=== PATIENT | male | born 1960 | race Caucasian/White ===

== ENCOUNTER 2017-12-30 11:36 | Day surgery (SDC) | payer MEDICAID, SELFPAY ==
[2017-12-30 12:10] VITALS: BP 113/76; PULSE 83; RESP 16; TEMP 37.1; O2SAT 100; BMI 32.0
--- NOTE | 2017-12-30 13:30 | RAD_ITS ---
STUDY: X-RAY - LUMBAR SPINE REASON FOR EXAM: Male, 57 years old. Right L3-S1 facet joint block. TECHNIQUE: 3 cone down intraoperative view(s) of the lumbar spine were obtained. COMPARISON: None FINDINGS: Fluoroscopic imaging provided for right L3-S1 facet joint block. RAD/Lumbar Spine 2 or 3 Views IMPRESSION: Imaging provided for right L3-S1 facet joint block. Electronically Signed: Thom Espinoza MD at 14:14 EST Tel [phone], Service support ,
[2017-12-30] MEDS: Triamcinolone Acetonide 40 MG/ML Vial (13:42)
[2017-12-30] MEDS: Bupivacaine 0.25% 30 ML Vial (13:43)
--- NOTE | 2017-12-30 13:51 | PCM.DC ---
- Discharge Diagnoses Current Active Problems: Lower back pain due to lumbar facet disease You will use the following diet at home:: No restrictions Your food should be the consistency of: Regular Discharge Activity: Return to Normal Activity May shower in (days): 1 May resume sexual activity in: No Restrictions Weight Bearing Status: Weight bearing as tolerated Call your doctor if your incision/area has: Continuous Slow Oozing, Sudden Increased Bleeding, Increased Pain/ Swelling, Foul Smelling Discharge, Swelling at the incision site Call your doctor if you observe: Fever of 101 or Higher, Coldness, Increased Pain, Numbness or Tingling, Uncontrolled pain Suture Line Care: Avoid Pulling/Pushing, Avoid Pinching/Bending Cleanse incision/area with: Soap & Water Allergies/Adverse Reactions: Allergies No Known Allergies Allergy (Verified 01/25/17 15:23) Medications to take at Discharge ALPRAZolam [Xanax] 1 mg PO QHS 01/25/17 Hydrocodone Bitart/Apap 5-325 [[place] 5MG-325MG] 2 tablet PO Q6H PRN PRN 01/25/17 Lisinopril [Zestril] 10 mg PO DAILY 01/25/17 Omeprazole [Prilosec] 40 mg PO DAILY 01/25/17 Pregabalin [Lyrica] 75 mg PO TID 01/25/17 Primary Care Physician: Mulu Person MD [Primary Care Provider] - Please Follow Up With: Luz Lombardi MD
--- NOTE | 2017-12-30 13:55 | OP.PCM_ITS ---
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 Patient placed in the prone position, pressure points were padded, patient was ready from the nursing and the anesthesia team. After identification of the side and the target area for the block under guided fluoroscopy, the entry site was marked with marking pen. I used Betadine for sterilization of the skin, sterile draping were applied. Using 25-gauge needle to infiltrate the skin with local anesthesia using preservative-free lidocaine 0.5% injected 2.5 mL at each site of entry. Using oblique fluoroscopy, accessed the right medial nerve branch supplying the right lumbar facets L3-4, L4-5, L5-S1 using 22-gauge spinal needle. After confirmation of appropriate needle placement to the targeted area with AP and lateral fluoroscopy, injected 2.5 mL mixture of preservative-free Marcaine 0.5% and Kenalog 20 mg at each site. [place] was removed, pressure dressing were applied. Patient tolerated the procedure well and was taken to the recovery.
[2017-12-30 13:57] VITALS: BP 113/76; BP 117/81; PULSE 92; RESP 16; TEMP 37.1; O2SAT 100
--- NOTE | 2017-12-30 14:01 | PCM.OPRPT ---
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 Patient placed in the prone position, pressure points were padded, patient was ready from the nursing and the anesthesia team. After identification of the side and the target area for the block under guided fluoroscopy, the entry site was marked with marking pen. I used Betadine for sterilization of the skin, sterile draping were applied. Using 25-gauge needle to infiltrate the skin with local anesthesia using preservative-free lidocaine 0.5% injected 2.5 mL at each site of entry. Using oblique fluoroscopy, accessed the right medial nerve branch supplying the right lumbar facets L3-4, L4-5, L5-S1 using 22-gauge spinal needle. After confirmation of appropriate needle placement to the targeted area with AP and lateral fluoroscopy, injected 2.5 mL mixture of preservative-free Marcaine 0.5% and Kenalog right mg at each site. [place] was removed, pressure dressing were applied. Patient tolerated the procedure well and was taken to the recovery. - Complications None
[2017-12-30 14:02] VITALS: BP 113/76; BP 114/81; PULSE 81; RESP 16; O2SAT 99
[2017-12-30 14:07] VITALS: BP 113/76; BP 128/89; PULSE 80; RESP 16; O2SAT 97
[2017-12-30 14:12] VITALS: BP 113/76; BP 130/90; PULSE 79; RESP 18; TEMP 37.1; O2SAT 97
[2017-12-30 14:22] VITALS: BP 113/76
== END 2017-12-30 14:40 | disposition home or self-care (01) ==
LOC: SDC 11:37 → AC 11:49
PROVIDERS: Family Provider Family Medicine; PCP Family Medicine; Visit Provider Anesthesiology
PROC: 3E0T3BZ Introduction of Anesthetic Agent into Peripheral Nerves and Plexi, Percutaneous Approach (ICD-10-PCS; CPT 64493; principal; 2017-12-30 13:15)
DX: M47.816 Spondylosis without myelopathy or radiculopathy, lumbar region (principal); M51.36 Other intervertebral disc degeneration, lumbar region; M51.26 Other intervertebral disc displacement, lumbar region; G89.29 Other chronic pain; I10 Essential (primary) hypertension; K21.9 Gastro-esophageal reflux disease without esophagitis; B19.20 Unspecified viral hepatitis C without hepatic coma; F17.210 Nicotine dependence, cigarettes, uncomplicated; E66.9 Obesity, unspecified; Z68.32 Body mass index [BMI] 32.0-32.9, adult; Z96.89 Presence of other specified functional implants; Z79.899 Other long term (current) drug therapy
CPT/HCPCS: 01922; 64493; 64494; 64495; 64483; 72100; J7120

== ENCOUNTER 2018-02-10 11:56 | Day surgery (SDC) | payer MEDICAID, SELFPAY ==
[2018-02-10 12:17] VITALS: BP 131/81; PULSE 99; RESP 14; TEMP 36.7; O2SAT 98; BMI 32.3
--- NOTE | 2018-02-10 14:00 | RAD_ITS ---
XR Spine Lumbar 2 or 3 Views INDICATION: BLOCK, LUMBAR FACET, L3-4,4-5,5-S1,LEFT COMPARISON: None TECHNIQUE: Multiple intraoperative fluoroscopic images of the lumbar spine. 22.3 seconds of intraoperative fluoroscopy were used. 3 images are provided. FINDINGS: Fluoroscopy was used for intraoperative guidance. Injection needles are noted at multiple levels. Please see operative report. RAD/Lumbar Spine 2 or 3 Views IMPRESSION: Intraoperative fluoroscopy for treatment guidance at multiple levels. Please see operative report. at 1909 Reported and signed by: Lisa Wakefield MD Electronically Signed: Lisa Wakefield MD at 18:07 EDT Tel , Service support ,
[2018-02-10] MEDS: Triamcinolone Acetonide 40 MG/ML Vial (14:46)
[2018-02-10] MEDS: Bupivacaine 0.25% 30 ML Vial (14:47)
--- NOTE | 2018-02-10 14:53 | PCM.DC ---
- Discharge Diagnoses Current Active Problems: Lumbar facet spondylosis Lower back pain Lumbar facet hypertrophy and arthritis Reason(s) for Visit for Discharge Instructions: Left sided lumbar facet block under fluoroscopy You will use the following diet at home:: No restrictions Your food should be the consistency of: Regular Discharge Activity: Return to Normal Activity, No Restrictions, May Drive, May Shower May shower in (days): 1 May resume sexual activity in: No Restrictions Weight Bearing Status: Weight bearing as tolerated Call your doctor if your incision/area has: Increased Pain/ Swelling, Increased Redness Call your doctor if you observe: Fever of 101 or Higher, Numbness or Tingling, Calf discomfort, Uncontrolled pain Suture Line Care: Avoid Pulling/Pushing, Avoid Pinching/Bending Cleanse incision/area with: Soap & Water Allergies/Adverse Reactions: Allergies No Known Allergies Allergy (Verified 01/25/17 15:23) Medications to take at Discharge ALPRAZolam [Xanax] 1 mg PO QHS 01/25/17 Hydrocodone Bitart/Apap 5-325 [[place] 5MG-325MG] 2 tablet PO Q6H PRN PRN 01/25/17 Lisinopril [Zestril] 10 mg PO DAILY 01/25/17 Omeprazole [Prilosec] 40 mg PO DAILY 01/25/17 Pregabalin [Lyrica] 75 mg PO TID 01/25/17 Primary Care Physician: Mulu Person MD [Primary Care Provider] - Please Follow Up With: Luz Lombardi MD
--- NOTE | 2018-02-10 14:55 | PCM.OPRPT ---
Problem List (1) Spondylosis of lumbar region without myelopathy or radiculopathy Status: Chronic (2) Spondylosis of lumbar region without myelopathy or radiculopathy Status: Acute (3) History of low back pain Status: Chronic Report of Operation Date of Procedure: 02/10/18 Pre-Operative Diagnosis: Lumbar facet spondylosis Post-Operative Diagnosis: Lumbar facet spondylosis Surgery/Procedure Performed:: Left-sided lumbar facet median nerve branch block at the level of the L3 4455 S1 under fluoroscopy guidance Description of Surgical Findings:: Under sterile conditions. Patient placed in the prone position, pressure points were padded, patient was ready from the nursing and the anesthesia team. After identification of the side and the target area for the block under guided fluoroscopy, the entry site was marked with marking pen. I used Betadine for sterilization of the skin, sterile draping were applied. Using 25-gauge needle to infiltrate the skin with local anesthesia using preservative-free lidocaine 1 % injected 2.5 mL at each site of entry. Using oblique fluoroscopy, accessed the Left medial nerve branch supplying the Left lumbar facets L3-4, L4-5, L5-S1 using 22-gauge spinal needle. After confirmation of appropriate needle placement to the targeted area with AP and lateral fluoroscopy, injected 2.5 mL mixture of preservative-free Marcaine 0.5% and Kenalog [20] mg at each site. [place] was removed, pressure dressing were applied. Patient tolerated the procedure well and was taken to the recovery. Type of Anesthesia:: Local MAC, MAC Special Medications: Preservative-free lidocaine 0.5%. Preservative-free Marcaine 0.5%. Kenalog 80 mg Estimated Blood Loss (mL): None - Complications None
[2018-02-10 14:57] VITALS: BP 131/81; BP 138/80; PULSE 99; RESP 18; TEMP 36.8; O2SAT 100
[2018-02-10 15:05] VITALS: BP 114/93; BP 131/81; PULSE 95; RESP 18; O2SAT 97
[2018-02-10 15:10] VITALS: BP 117/92; BP 131/81; PULSE 92; RESP 18; O2SAT 99
[2018-02-10 15:15] VITALS: BP 131/81; BP 134/95; PULSE 95; RESP 18; TEMP 36.8; O2SAT 97
[2018-02-10 15:20] VITALS: BP 131/81
== END 2018-02-10 15:25 | disposition home or self-care (01) ==
LOC: SDC 11:56 → AC 11:57
PROVIDERS: Family Provider Family Medicine; PCP Family Medicine; Visit Provider Anesthesiology
PROC: 3E0T3BZ Introduction of Anesthetic Agent into Peripheral Nerves and Plexi, Percutaneous Approach (ICD-10-PCS; CPT 64493; principal; 2018-02-10 13:55)
DX: M47.816 Spondylosis without myelopathy or radiculopathy, lumbar region (principal); M47.817 Spondylosis without myelopathy or radiculopathy, lumbosacral region; M51.36 Other intervertebral disc degeneration, lumbar region; M25.569 Pain in unspecified knee; M79.1 Myalgia; M51.37 Other intervertebral disc degeneration, lumbosacral region; I10 Essential (primary) hypertension; F17.200 Nicotine dependence, unspecified, uncomplicated
CPT/HCPCS: 64493; 64483; 72100; J7120

== ENCOUNTER → 2018-11-10 11:51 | Outpatient (CLI) | payer MEDICAID, SELFPAY ==
--- NOTE | 2018-11-10 11:55 | RAD_ITS ---
STUDY: X-RAY - RIGHT KNEE REASON FOR EXAM: Male, 58 years old. Continued knee pain. TECHNIQUE: 4 view(s) of the knee. COMPARISON: None. FINDINGS: Normal visualized distal femur. Normal visualized proximal tibia and fibula. Normal proximal tibiofibular articulation. The patient is status post screw fixation of a comminuted patellar fracture. Normal medial femorotibial compartment. Normal lateral femorotibial compartment. Normal patellofemoral articulation. Prepatellar and infrapatellar soft tissue swelling. RAD/Knee 4 or More Views IMPRESSION: Status post screw fixation of the comminuted patellar fracture. Prepatellar and infrapatellar soft tissue swelling. Electronically Signed: Thom Espinoza MD at 12:57 EST Tel [phone], Service support ,
== END ==
PROVIDERS: Family Provider Family Medicine; PCP Family Medicine; Referring Provider Anesthesiology; Visit Provider Anesthesiology
DX: M25.561 Pain in right knee (principal)
CPT/HCPCS: 73564

== ENCOUNTER → 2018-11-30 12:53 | Outpatient (CLI) | payer MEDICAID, SELFPAY ==
--- NOTE | 2018-11-30 12:57 | CT_ITS ---
STUDY: CT LUMBAR SPINE WITHOUT CONTRAST REASON FOR EXAM: Male, 58 years old. History of radiculopathy. The patient has a pain stimulator device in situ. RADIATION DOSAGE (If Supplied By Facility): CTDIvol = ( 24.29 ) mGy, DLP = ( 735.83 ) mGycm TECHNIQUE: The patient was scanned in a multi detector CT scanner. High resolution transaxial imaging was performed. Images were obtained from T12 to S1 vertebral level. Sagittal and coronal images were reconstructed. Individualized dose optimization techniques were used for this CT. COMPARISON: None FINDINGS: Normal lumbar lordosis. There is no substantial scoliosis. A pain stimulator device is seen. Electrodes are seen along the posterior aspect of the thecal sac. L1-2: Mild degree of anterior spondylosis. No evidence of spinal stenosis. L2-3: Mild degree of disc space narrowing. Anterior spondylosis. No evidence of spinal stenosis. L3-4: Mild degree of bilateral spondylosis. Hypertrophy of the facet joints. Mild degree of diffuse posterior disc bulge. This causes a mild degree of bilateral neural foraminal stenosis. L4-5: Mild degree of disc space narrowing. Facet joint osteoarthritis and hypertrophy. Moderate degree of bilateral neural foraminal stenosis. There is also evidence of a left paracentral disc herniation causing deformity of the thecal sac. L5-S1: Normal endplates. Normal disc height and morphology. Normal bilateral facet joints. Normal central canal and bilateral lateral recesses. Normal bilateral intervertebral neural foramina. Normal visualized paraspinous soft tissue structures. CT/Spine Lumbar without Contrast IMPRESSION: Multilevel degenerative changes, as described above. Bilateral neural foraminal stenosis at the L4-L5 level. Small left paracentral disc herniation causing deformity of the thecal sac at that site. Electronically Signed: Thom Espinoza MD at 13:43 EST Tel [phone], Service support ,
--- OUTSIDE RECORDS SUMMARY | 2019-02-04 05:27 | XMS RPT_ITS ---
:1960 Author Organization OHIP Support Name Relationship Address Phone DWIGHT WAGGONERYL Unavailable Unavailable + [place], [place] [address] [place] [address], APPLE Unavailable [address] + [place] [address] UE Unavailable Unavailable Unavailable EDILSON, MULU Unavailable Unavailable + [place], [place] [id number] [place] [address], APPLE Unavailable [address] + [place] [address] UE Unavailable Unavailable Unavailable TKNING, MULU Unavailable Unavailable + NAMPA APPLE Unavailable Unavailable + NAMPA APPLE Unavailable Unavailable + EDILSON, MULU Unavailable Unavailable + NAMPA, APPLE Unavailable Unavailable + NAMPA, APPLE Unavailable Unavailable + EDILSON, MULU Unavailable Unavailable + [place] [address] NAMPA, APPLE Unavailable [address] + [place] [address] UE Unavailable Unavailable Unavailable EDILSON, MULU Unavailable Unavailable + NAMPA APPLE Unavailable Unavailable + NAMPA, APPLE Unavailable Unavailable + [facility] Unavailable . + [place] [address] NAMPA APPLE Unavailable [address] + [place] [address] UE Unavailable Unavailable Unavailable Care Team Providers Name Role Phone SUSANNA PERSON DO Attending Unavailable SUSANNA PERSON DO Primary Care Unavailable CJ NICOLE, DR. CLAUDIO Attending Unavailable SUSANNA PERSON DO Primary Care Unavailable PERSON DO, SUSANNA Attending Unavailable PERSON DO, SUSANNA Primary Care Unavailable Harjit, Sameyasmany Attending Unavailable Harjit, Sameh Referring Unavailable Person, Susanna Primary Care Unavailable Harjit, Sameh Attending Unavailable Harjit, Sameh Referring Unavailable Person, Susanna Primary Care Unavailable Harjit, Sameh Attending Unavailable Person, Susanna Primary Care Unavailable Harjit, Sameh Attending Unavailable Harjit, Sameh Referring Unavailable Person, Susanna Primary Care Unavailable PROBLEMS PROBLEMS DATE TYPE CONDITION / CODE ATTENDING STATUS SOURCE 11/10/2018 Unknown M25.561 - Pain in [facility] Active [place] right knee / Community M25.561(ICD-10) Hospital Repository 04/05/2018 Admitting Other correction [facility] MOS[facility] SUSANNA [facility] therapy / Repository Z79.899(ICD-10) 03/02/2018 Unknown M47.816 - [facility] Active [place] Spondylosis Community without Hospital myelopathy or Repository radiculopathy, lumbar region / M47.816(ICD-10) 01/03/2018 Admitting Encounter for LINDA MOSES, Active Citizen.VC Diagnosis therapeutic drug SUSANNA Foundation level monitoring Repository / Z51.81(ICD-10) PROCEDURES PROCEDURES No Procedure Records FoundRESULTS RESULTS SPINE LUMBAR WITHOUT Observed: 11/30/2018 Status: F Source: STRAWN CONTRAST 12:57 PM [facility] REPOSITORY [facility] Imaging Services [address] [place] [address] Spine Lumbar without Contrast MR#: [id number] Acct: [id number] Name: DENNIS WAGGONER Rep #: [id number] : 1960 M 58 From: Thom Espinoza MD PCP: Kurtis Personistin Status: REG CLI Study: Spine Lumbar without Contrast Date of Exam: 11/30/18 Exam# [id number] Ordering Dr: Luz Lombardi MD STUDY: CT LUMBAR SPINE WITHOUT CONTRAST REASON FOR EXAM: Male, 58 years old. History of radiculopathy. The patient has a pain stimulator device in situ. RADIATION DOSAGE (If Supplied By Facility): CTDIvol = ( 24.29 ) mGy, DLP = ( 735.83 ) mGycm TECHNIQUE: The patient was scanned in a multi detector CT scanner. High resolution transaxial imaging was performed. Images were obtained from T12 to S1 vertebral level. Sagittal and coronal images were reconstructed. Individualized dose optimization techniques were used for this CT. COMPARISON: None FINDINGS: Normal lumbar lordosis. There is no substantial scoliosis. A pain stimulator device is seen. Electrodes are seen along the posterior aspect of the thecal sac. L1-2: Mild degree of anterior spondylosis. No evidence of spinal stenosis. L2-3: Mild degree of disc space narrowing. Anterior spondylosis. No evidence of spinal stenosis. L3-4: Mild degree of bilateral spondylosis. Hypertrophy of the facet joints. Mild degree of diffuse posterior disc bulge. This causes a mild degree of bilateral neural foraminal stenosis. L4-5: Mild degree of disc space narrowing. Facet joint osteoarthritis and hypertrophy. Moderate degree of bilateral neural foraminal stenosis. There is also evidence of a left paracentral disc herniation causing deformity of the thecal sac. L5-S1: Normal endplates. Normal disc height and morphology. Normal bilateral facet joints. Normal central canal and bilateral lateral recesses. Normal bilateral intervertebral neural foramina. Normal visualized paraspinous soft tissue structures. CT/Spine Lumbar without Contrast IMPRESSION: Multilevel degenerative changes, as described above. Bilateral neural foraminal stenosis at the L4-L5 level. Small left paracentral disc herniation causing deformity of the thecal sac at that site. Electronically Signed: Thom Espinoza MD at 13:43 EST Tel [phone], Service support , CC: Susanna Person DO; Luz Lombardi M.D. Algebra Teacher: Signed KNEE 4 OR MORE Observed: 11/10/2018 Status: F Source: EBCCA VIEWS 11:55 AM [facility] REPOSITORY [facility] Imaging Services [address] [place] [address] Knee 4 or More Views MR#: [id number] Acct: [id number] Name: DENNIS WAGGONER Rep #: [id number] : 1960 M 58 From: Thom Espinoza MD PCP: Susanna Person DO Status: REG CLI Study: Knee 4 or More Views Date of Exam: 11/10/18 Exam# [id number] Ordering Dr: Luz Lombardi MD STUDY: X-RAY - RIGHT KNEE REASON FOR EXAM: Male, 58 years old. Continued knee pain. TECHNIQUE: 4 view(s) of the knee. COMPARISON: None. FINDINGS: Normal visualized distal femur. Normal visualized proximal tibia and fibula. Normal proximal tibiofibular articulation. The patient is status post screw fixation of a comminuted patellar fracture. Normal medial femorotibial compartment. Normal lateral femorotibial compartment. Normal patellofemoral articulation. Prepatellar and infrapatellar soft tissue swelling. RAD/Knee 4 or More Views IMPRESSION: Status post screw fixation of the comminuted patellar fracture. Prepatellar and infrapatellar soft tissue swelling. Electronically Signed: Thom Espinoza MD at 12:57 EST Tel [phone], Service support , CC: Susanna Person DO; Luz Lombardi M.D. Algebra Teacher: Signed TOXSC Collected: 04/05/2018 Status: F Source: [facility] 9:37 AM [facility] [place] REPOSITORY TYPE CODE TESTS RESULT OUT OF REFERENCE UNITS RANGE LAB UTCA(LOINC ) U TCA (AO) Negative LAB AOUBAR(CATHERINE NC) U Lavinia (AO) Negative LAB AOUMETH(LO INC) U Methadone (AO) Negative LAB AOUBNZ(CATHERINE NC) U Mervin (AO) Positive LAB AOUCAN(CATHERINE NC) U Cannab (AO) Negative LAB CD:[id number](LOINC) Urine Opiates (AO) Positive LAB AOUAMP(CATHERINE NC) U Ampheta (AO) Negative LAB AOUCOC(CATHERINE NC) U Cocaine (AO) Negative LAB AOUPCP(CATHERINE NC) U PCP (AO) Negative LAB CD:[id number](LOINC) QC TOXSC Valid Performed By: #### TOXSC #### Richard Narvon [address] [place], [place] [address] XR CHEST 2 VIEWS Observed: 02/11/2018 Status: F Source: [facility] 12:44 PM [facility] [place] REPOSITORY ORIGINAL XR CHEST 2 VIEWS CLINICAL STATEMENT: Chest pain COMPARISON: [01/19/2017 FINDINGS: The heart and mediastinal structures are normal . The lungs are clear, airspace opacity in the left base has resolved. The pulmonary vasculature is normal. There are no pleural effusions. The left-sided rib fracture appears partially healed. IMPRESSION: No acute thoracic process Interpreted By: Tarun Larson MD Preliminary Report By: Tarun Larson MD Electronically Signed By: Tarun Larson MD Dictated Date: 02/11/2018 12:48:46 PM Prelim Date: 02/11/2018 12:48:46 PM Sign Date: 02/11/2018 12:49:47 PM XR RIBS 2 VIEWS Observed: 02/11/2018 Status: F Source: [facility] 12:41 PM [facility] [place] REPOSITORY ORIGINAL XR RIBS 2 VIEWS LEFT CLINICAL STATEMENT: pain. COMPARISON: None FINDINGS: There is a healing left lateral rib fracture. No other rib fractures are identified. No pneumothorax. IMPRESSION: Healing left-sided lateral ninth rib fracture. Interpreted By: Tarun Larson MD Preliminary Report By: Tarun Larson MD Electronically Signed By: Tarun Larson MD Dictated Date: 02/11/2018 12:54:20 PM Prelim Date: 02/11/2018 12:54:20 PM Sign Date: 02/11/2018 12:54:51 PM UA Collected: 02/11/2018 Status: F Source: [facility] 12:18 PM [facility] [place] REPOSITORY TYPE CODE TESTS RESULT OUT OF REFERENCE UNITS RANGE LAB SPCUA(LOIN C) UA Specimen Type Clean Catch LAB CLRUA(LOIN C) UA Color YELLOW LAB APPUA(LOIN C) UA Appear CLEAR LAB SGUA(LOINC ) UA Spec Grav 1.015 LAB GLUA(LOINC mg/dL ) UA Glucose NEGATIVE LAB BILUA(LOIN C) UA Bili NEGATIVE LAB KETUA(LOIN mg/dL C) UA Ketones NEGATIVE LAB BLDUA(LOIN C) UA Blood NEGATIVE LAB PHUA(LOINC ) UA pH 6.5 LAB PROUA(LOIN mg/dL C) UA Protein NEGATIVE LAB UROUA(LOIN E.U./dL C) UA Urobilinogen 0.2 LAB NITUA(LOIN C) UA Nitrite NEGATIVE LAB LEUUA(LOIN C) UA Leuk Est NEGATIVE Performed By: #### UA, UAMICAO #### Richard Narvon [address] [place], [place] [address] .URINALYSIS MICROSCOPIC Collected: 02/11/2018 Status: F Source: RICHARD QUINONEZ) 12:18 PM [facility] REPOSITORY TYPE CODE TESTS RESULT OUT OF REFERENCE UNITS RANGE LAB WBCUA(LOIN None Seen /hpf C) UA WBC None Seen LAB RBCUA(LOIN None Seen /hpf C) UA RBC None Seen LAB EPIUA(LOIN None Seen /hpf C) UA Squam Epithelial None Seen Performed By: #### UA, UAMICAO #### Richard Narvon [address] [place] [address] OPERATIVE REPORT Observed: 02/10/2018 Status: F Source: BECCA 2:58 PM [facility] REPOSITORY [facility] Medical Records Department [address] [place] [address] Operative Report 02/10/18 1455 MR#: [id number] Acct: [id number] Name: DENNIS WAGGONER Guanaco Rep #: [id number] : 1960 57 From: Luz Lombardi MD PCP: Susanna Person MD Status: REG [facility] Y Location: [place] [address] Problem List (1) Spondylosis of lumbar region without myelopathy or radiculopathy Status: Chronic (2) Spondylosis of lumbar region without myelopathy or radiculopathy Status: Acute (3) History of low back pain Status: Chronic Report of Operation Date of Procedure: 02/10/18 Pre-Operative Diagnosis: Lumbar facet spondylosis Post-Operative Diagnosis: Lumbar facet spondylosis Surgery/Procedure Performed:: Left-sided lumbar facet median nerve branch block at the level of the L3 4455 S1 under fluoroscopy guidance Description of Surgical Findings:: Under sterile conditions. Patient placed in the prone position, pressure points were padded, patient was ready from the nursing and the anesthesia team. After identification of the side and the target area for the block under guided fluoroscopy, the entry site was marked with marking pen. I used Betadine for sterilization of the skin, sterile draping were applied. Using 25-gauge needle to infiltrate the skin with local anesthesia using preservative-free lidocaine 1 % injected 2.5 mL at each site of entry. Using oblique fluoroscopy, accessed the Left medial nerve branch supplying the Left lumbar facets L3-4, L4-5, L5-S1 using 22-gauge spinal needle. After confirmation of appropriate needle placement to the targeted area with AP and lateral fluoroscopy, injected 2.5 mL mixture of preservative-free Marcaine 0.5% and Kenalog [20] mg at each site. Irvine was removed, pressure dressing were applied. Patient tolerated the procedure well and was taken to the recovery. Type of Anesthesia:: Local MAC, MAC Special Medications: Preservative-free lidocaine 0.5%. Preservative- free Marcaine 0.5%. Kenalog 80 mg Estimated Blood Loss (mL): None - Complications None 02/10/18 1458 <Electronically signed by Luz Lombardi MD> Date Luz Lombardi MD CC: Susanna Person MD; Luz Lombardi M.D. Signed DISCHARGE INSTRUCTION Observed: 02/10/2018 Status: F Source: [place] 2:55 PM [facility] REPOSITORY [facility] Medical Records Department [address] [place] [address] Instructions for Home/Discharge Instructions 02/10/18 1453 MR#: [id number] Acct: [id number] Name: DENNIS WAGGONER Guanaco Rep #: [id number] : 1960 57 From: Luz Lombardi MD PCP: Susanna Person MD Status: REG SDC - Discharge Diagnoses Current Active Problems: Lumbar facet spondylosis Lower back pain Lumbar facet hypertrophy and arthritis Reason(s) for Visit for Discharge Instructions: Left sided lumbar facet block under fluoroscopy You will use the following diet at home:: No restrictions Your food should be the consistency of: Regular Discharge Activity: Return to Normal Activity, No Restrictions, May Drive, May Shower May shower in (days): 1 May resume sexual activity in: No Restrictions Weight Bearing Status: Weight bearing as tolerated Call your doctor if your incision/area has: Increased Pain/ Swelling, Increased Redness Call your doctor if you observe: Fever of 101 or Higher, Numbness or Tingling, Calf discomfort, Uncontrolled pain Suture Line Care: Avoid Pulling/Pushing, Avoid Pinching/Bending Cleanse incision/area with: Soap AND Water Allergies/Adverse Reactions: Allergies No Known Allergies Allergy (Verified 01/25/17 15:23) Medications to take at Discharge ALPRAZolam [Xanax] 1 mg PO QHS 01/25/17 Hydrocodone Bitart/Apap 5-325 [Liberty 5MG-325MG] 2 tablet PO Q6H PRN PRN 01/25/17 Lisinopril [Zestril] 10 mg PO DAILY 01/25/17 Omeprazole [Prilosec] 40 mg PO DAILY 01/25/17 Pregabalin [Lyrica] 75 mg PO TID 01/25/17 Primary Care Physician: Susanna Person MD [Primary Care Provider] - Please Follow Up With: Luz Lombardi MD 02/10/18 2688 <Electronically signed by Luz Lombardi MD> Date Luz Lombardi MD CC: Susanna Person MD LUMBAR SPINE 2 OR 3 Observed: 02/10/2018 Status: F Source: BECCA VIEWS 1:27 AM [facility] REPOSITORY [facility] Imaging Services [address] [place] [address] Lumbar Spine 2 or 3 Views MR#: [id number] Acct: [id number] Name: DENNIS WAGGONER Rep #: [id number] : 1960 M 57 From: Lisa Wakefield MD PCP: Susanna Person MD Status: [facility] Study: Lumbar Spine 2 or 3 Views Date of Exam: 02/10/18 Exam# [id number] Ordering Dr: Luz Lombardi MD XR Spine Lumbar 2 or 3 Views INDICATION: BLOCK, LUMBAR FACET, L3-4,4-5,5-S1,LEFT COMPARISON: None TECHNIQUE: Multiple intraoperative fluoroscopic images of the lumbar spine. 22.3 seconds of intraoperative fluoroscopy were used. 3 images are provided. FINDINGS: Fluoroscopy was used for intraoperative guidance. Injection needles are noted at multiple levels. Please see operative report. RAD/Lumbar Spine 2 or 3 Views IMPRESSION: Intraoperative fluoroscopy for treatment guidance at multiple levels. Please see operative report. at 1909 Reported and signed by: Lisa Wakefield MD Electronically Signed: Lisa Wakefield MD at 18:07 EDT Tel , Service support , CC: Susanna Person MD; Luz Lombardi M.D. Algebra Teacher: Signed TOXSC Collected: 01/03/2018 Status: F Source: [facility] 9:30 AM [facility] [place] REPOSITORY TYPE CODE TESTS RESULT OUT OF REFERENCE UNITS RANGE LAB UTCA(LOINC ) U TCA (AO) Negative LAB AOUBAR(CATHERINE NC) U Lavinia (AO) Negative LAB AOUMETH(LO INC) U Methadone (AO) Negative LAB AOUBNZ(CATHERINE NC) U Mervin (AO) Positive LAB AOUCAN(CATHERINE NC) U Cannab (AO) Negative LAB CD:[id number] 71(LOINC) Urine Opiates (AO) Negative LAB AOUAMP(CATHERINE NC) U Ampheta (AO) Negative LAB AOUCOC(CATHERINE NC) U Cocaine (AO) Negative LAB AOUPCP(CATHERINE NC) U PCP (AO) Negative LAB CD:[id number] 03(INC) QC TOXSC Valid Performed By: #### TOXSC #### Richard [address] [address] OPERATIVE REPORT Observed: 12/30/2017 Status: F Source: STRAWN 2:03 PM [facility] REPOSITORY [facility] Medical Records Department [address] [place] [address] Operative Report 12/30/17 1401 MR#: [id number] Acct: [id number] Name: DENNIS WAGGONER Rep #: [id number] : 1960 57 From: Luz Lombardi MD PCP: Susanna Person MD Status: REG SDC Y Location: [place] [address] Problem List (1) Spondylosis of lumbar region without myelopathy or radiculopathy Status: Chronic (2) Spondylosis of lumbar region without myelopathy or radiculopathy Status: Acute (3) History of low back pain Status: Chronic Report of Operation Date of Procedure: 12/30/17 Pre-Operative Diagnosis: Lumbar facet arthritis causing lower back pain Post-Operative Diagnosis: Lumbar facet spondylosis Surgery/Procedure Performed:: Right lumbar facets medial nerve branch block at right L3-4 L4-5, L5-S1 under fluoroscopy guidance Description of Surgical Findings:: Lumbar facets arthritis transition nurse: None Type of Anesthesia:: Local MAC, MAC/Supplemental/Local Special Medications: Preservative-free lidocaine 0.5%, preservative- free Marcaine 0.25%, Kenalog 80 mg Estimated Blood Loss (mL): None Description of Procedure: Under sterile conditions. Patient placed in the prone position, pressure points were padded, patient was ready from the nursing and the anesthesia team. After identification of the side and the target area for the block under guided fluoroscopy, the entry site was marked with marking pen. I used Betadine for sterilization of the skin, sterile draping were applied. Using 25-gauge needle to infiltrate the skin with local anesthesia using preservative-free lidocaine 0.5% injected 2.5 mL at each site of entry. Using oblique fluoroscopy, accessed the right medial nerve branch supplying the right lumbar facets L3-4, L4-5, L5-S1 using 22-gauge spinal needle. After confirmation of appropriate needle placement to the targeted area with AP and lateral fluoroscopy, injected 2.5 mL mixture of preservative-free Marcaine 0.5% and Kenalog right mg at each site. Irvine was removed, pressure dressing were applied. Patient tolerated the procedure well and was taken to the recovery. - Complications None 12/30/17 1403 <Electronically signed by Luz Lombardi MD> Date Luz Lombardi MD CC: Susanna Person MD; Luz Lombardi M.D. Signed OPERATIVE REPORT Observed: 12/30/2017 Status: F Source: BECCA 1:55 PM [facility] REPOSITORY [facility] Medical Records Department [address] [place] [address] Operative Report 12/30/17 1353 MR#: [id number] Acct: [id number] Name: DENNIS WAGGONER Rep #: [id number] : 1960 57 From: Luz Lombardi MD PCP: Susanna Person MD Status: REG [facility] Y Location: [place] [address] Problem List (1) Spondylosis of lumbar region without myelopathy or radiculopathy Status: Chronic (2) Spondylosis of lumbar region without myelopathy or radiculopathy Status: Acute (3) History of low back pain Status: Chronic Operative Report Date of Procedure: 12/30/17 Under sterile conditions. Patient placed in the prone position, pressure points were padded, patient was ready from the nursing and the anesthesia team. After identification of the side and the target area for the block under guided fluoroscopy, the entry site was marked with marking pen. I used Betadine for sterilization of the skin, sterile draping were applied. Using 25-gauge needle to infiltrate the skin with local anesthesia using preservative-free lidocaine 0.5% injected 2.5 mL at each site of entry. Using oblique fluoroscopy, accessed the right medial nerve branch supplying the right lumbar facets L3-4, L4-5, L5-S1 using 22-gauge spinal needle. After confirmation of appropriate needle placement to the targeted area with AP and lateral fluoroscopy, injected 2.5 mL mixture of preservative-free Marcaine 0.5% and Kenalog 20 mg at each site. Irvine was removed, pressure dressing were applied. Patient tolerated the procedure well and was taken to the recovery. 12/30/17 1355 <Electronically signed by Luz Lombardi MD> Date Luz Lombardi MD CC: Susanna Person MD; Luz Lombardi M.D. Signed DISCHARGE INSTRUCTION Observed: 12/30/2017 Status: F Source: BECCA 1:53 PM [facility] REPOSITORY [facility] Medical Records Department [address] [place] [address] Instructions for Home/Discharge Instructions 12/30/17 1351 MR#: [id number] Acct: [id number] Name: DENNIS WAGGONER Rep #: [id number] : 1960 57 From: Luz Lombardi MD PCP: Susanna Person MD Status: REG SDC - Discharge Diagnoses Current Active Problems: Lower back pain due to lumbar facet disease You will use the following diet at home:: No restrictions Your food should be the consistency of: Regular Discharge Activity: Return to Normal Activity May shower in (days): 1 May resume sexual activity in: No Restrictions Weight Bearing Status: Weight bearing as tolerated Call your doctor if your incision/area has: Continuous Slow Oozing, Sudden Increased Bleeding, Increased Pain/ Swelling, Foul Smelling Discharge, Swelling at the incision site Call your doctor if you observe: Fever of 101 or Higher, Coldness, Increased Pain, Numbness or Tingling, Uncontrolled pain Suture Line Care: Avoid Pulling/Pushing, Avoid Pinching/Bending Cleanse incision/area with: Soap AND Water Allergies/Adverse Reactions: Allergies No Known Allergies Allergy (Verified 01/25/17 15:23) Medications to take at Discharge ALPRAZolam [Xanax] 1 mg PO QHS 01/25/17 Hydrocodone Bitart/Apap 5-325 [Liberty 5MG-325MG] 2 tablet PO Q6H PRN PRN 01/25/17 Lisinopril [Zestril] 10 mg PO DAILY 01/25/17 Omeprazole [Prilosec] 40 mg PO DAILY 01/25/17 Pregabalin [Lyrica] 75 mg PO TID 01/25/17 Primary Care Physician: Susanna Person MD [Primary Care Provider] - Please Follow Up With: Luz Lombardi MD 12/30/17 7908 <Electronically signed by Luz Lombardi MD> Date Luz Lombardi MD CC: Susanna Person MD LUMBAR SPINE 2 OR 3 Observed: 12/30/2017 Status: F Source: BECCA VIEWS 12:47 AM [facility] REPOSITORY [facility] Imaging Services [address] [place] [address] Lumbar Spine 2 or 3 Views MR#: [id number] Acct: [id number] Name: DENNIS WAGGONER Rep #: [id number] : 1960 M 57 From: Thom Espinoza MD PCP: Susanna Person MD Status: REG [facility] Study: Lumbar Spine 2 or 3 Views Date of Exam: 12/30/17 Exam# [id number] Ordering Dr: Luz Lombardi MD STUDY: X-RAY - LUMBAR SPINE REASON FOR EXAM: Male, 57 years old. Right L3-S1 facet joint block. TECHNIQUE: 3 cone down intraoperative view(s) of the lumbar spine were obtained. COMPARISON: None FINDINGS: Fluoroscopic imaging provided for right L3-S1 facet joint block. RAD/Lumbar Spine 2 or 3 Views IMPRESSION: Imaging provided for right L3-S1 facet joint block. Electronically Signed: Thom Espinoza MD at 14:14 EST Tel [phone], Service support , CC: Susanna Person MD; Luz Lombardi M.D. Algebra Teacher: Signed ALLERGIES ALLERGIES DATE TYPE / CODE NAME / CODE REACTION SEVERITY SOURCE 01/25/2017 Drug No Known Unknown [facility] Allergy/4160 Allergies/F00 Hospital [address](SNOMED 0575172(RXNOR Repository CT) M) ENCOUNTERS ENCOUNTERS ADMIT/DISCHARGE ACCOUNT NUMBER ADMITTING ENCOUNTER LOCATION SOURCE CLASS 11/30/2018 [id number] Ambulatory [facility] ding:CT Repository 11/10/2018 [id number] Ambulatory [facility] ding:RAD Repository 04/05/2018/04/09/20 [id number] Ambulatory [address] ding:[facility]OP [facility] Repository 02/11/2018/02/12/20 [id number] Emergency BBuilding:[address] [facility] Repository 02/10/2018/02/11/20 [id number] Ambulatory [address] ding:SDC Repository 01/03/2018/01/07/20 [id number] Ambulatory [address] ding:[facility] Repository 12/30/2017/12/30/19 [id number] Ambulatory [address] ding:SDC Repository PAYERS PAYERS ENCOUNTER GUARANTOR PAYER SUBSCRIBER SOURCE 11/30/2018 DENNIS L Primary DENNIS Benavidez [id number] Insurance:CARESOURCEP [facility] Number: [id number], [place] [id number] Repository [address]Kpg: [phone]) Date:2018-11-22P O [phone] () [address]ATTN: [place] [address]YE: 11/30/2018 Secondary NOT GIVENUNK [place] Insurance:SELF PAY [facility] Number: Effective Repository Date:2018-11-22 11/10/2018 DENNIS L Primary DENNIS Benavidez [id number] Insurance:[facility] Number: [id number] [place], [place] [id number] Repository [address]Bli: ([phone]) Date:2018-11-10P O [phone] () [address]ATTN: [place] [address]HD: 11/10/2018 Secondary NOT GIVENUNK [place] Insurance:SELF PAY [facility] Number: Effective Repository Date:2018-11-10 04/05/2018 DENNIS L Primary DENNIS [place] [facility]: Insurance:CARESOURCE [facility]: [facility] MEDICAIDPolicy [id number] Number: [address] [place], [place] [id number] [place], [place] [address]Qaq: ([phone]) Date:2018-04-0508801Jjk: (HP) [id number] Name:XPO Box (HP)Tel: (000) [place], [place] [address] (WP) [phone]: 02/11/2018 DENNIS L Primary DENNIS Blanc [facility]: Insurance:[facility]: [facility] MEDICAIDPolicy [id number] Number: [address] [place], [place] [id number] [place], [place] [address]Nqy: ([phone]) Date:2018-02-1198330Jgf: (HP) [id number] [phone] Name:XPO Box (HP)Tel: (000) [address], [place] [address] (WP) [address]PN: 02/10/2018 DENNIS L Primary DENNIS L [place] [id number] Insurance:[facility]ITALB: [facility] [address] olicy Number: [id number] [place], [place] [id number] Repository [address]Oly: ([phone]) Date:2018-01-20 O [phone] (HP) [address]ATTN: [place] [address]EP: 02/10/2018 Secondary NOT GIVENUNK [place] Insurance:SELF PAY [facility] Number: Effective Repository Date:2018-01-20 01/03/2018 DENNIS L Primary DENNIS Bl[place] [facility]: Insurance:CARESOURCE [facility]: [facility] MEDICAIDPolunitypoint health-[facility] [id number] Number: [address] [place], [place] [id number] [place], [place] [address]Bhz: ([phone]) Date:2018-01-03 [address]Lme: [id number] [phone] ()Tel: ([phone]) Name:XPO [address] () (WP) [address], [place] [address] (MV) [phone]: 12/30/2017 DENNIS [id number] Primary DENNIS VERAB: Becca TALBERT Insurance:CARESOURCEP [id number] Number: Hospital [address]Wwh: (336) [id number] Repository [phone] () Date:2017-11-15P [address]ATTN: [place] [address]EB: 12/30/2017 Secondary NOT GIVENUNK [place] Insurance:SELF PAY [facility]: Effective Repository Date:2017-11-15
== END ==
PROVIDERS: Family Provider Family Medicine; PCP Family Medicine; Referring Provider Anesthesiology; Visit Provider Anesthesiology
DX: M54.42 Lumbago with sciatica, left side (principal); M51.36 Other intervertebral disc degeneration, lumbar region; M54.16 Radiculopathy, lumbar region
CPT/HCPCS: 72131

== ENCOUNTER → 2019-04-13 17:37 | Outpatient (CLI) | payer MEDICAID, SELFPAY ==
[2019-04-13 17:52] LABS: Amphetamine Urine VISTA NEGATIVE (<1000 ng/mL); Barbiturate Urine VISTA NEGATIVE (< 200 ng/mL); Benzodiazepine Urine VISTA NEGATIVE (< 200 ng/mL); Cocaine Urine VISTA NEGATIVE (< 300 ng/mL); Ecstacy Urine VISTA NEGATIVE (< 500 ng/mL); Methadone Urine VISTA NEGATIVE (< 300 ng/mL); PCP Urine VISTA NEGATIVE (< 25 ng/mL); THC Urine VISTA NEGATIVE (< 50 ng/mL); Vista UDS pH Range 6
== END ==
PROVIDERS: Visit Provider Anesthesiology
DX: F11.20 Opioid dependence, uncomplicated (principal)
CPT/HCPCS: 36415; 80307